=== PATIENT | female | born 1985 | race American Indian/Alaskan Native ===

== ENCOUNTER 2017-10-05 21:54 | Emergency (ER) | payer MEDICAID, OTHER ==
[2017-10-05 23:08] LABS: Basophils % (Auto) 0.4 % (0.0-1.8); Eosinophils # (Auto) 0.1 K/mm3 (0.0-0.4); Eosinophils % (Auto) 0.9 % (0.0-4.3); Hematocrit 42.7 % (30.3-42.9); Hemoglobin 14.4 gm/dl (10.1-14.3); Lymphocytes # (Auto) 1.7 K/mm3 (1.2-5.4); Lymphocytes % (Auto) 27.2 % (13.4-35.0); Mean Corpuscular HGB Conc 34 % (30-34); Mean Corpuscular Hemoglobin 28 pg (28-32); Mean Corpuscular Volume 83 fl (79-97); Monocytes # (Auto) 0.5 K/mm3 (0.0-0.8); Red Blood Count 5.14 M/mm3 (3.65-5.03)
[2017-10-05 23:28] LABS: Alanine Aminotransferase 8 units/L (7-56); Albumin 4.4 g/dL (3.9-5); BUN/Creatinine Ratio 10; Blood Urea Nitrogen 7 mg/dL (7-17); Calcium 9.4 mg/dL (8.4-10.2); Hemolysis Index 7
[2017-10-06 00:32] LABS: Platelet Count 189 K/mm3 (140-440)
[2017-10-06 01:30] LABS: Bacteria,Urine 2+ /HPF (Negative); Bilirubin,Urine SM (Negative); Blood,Urine NEG (Negative); Calcium Oxalate Crystals,Urine 1+; Color,Urine Amber (Yellow); Mucus,Urine 3+ /HPF
[2017-10-06] MEDS ORDERED: NACL 0.9% 500 ML 500 ML IV ONE (01:38)
[2017-10-06] MEDS ORDERED: TORADOL IV ONE (01:38)
[2017-10-06] MEDS ORDERED: ZOFRAN IV ONE (01:38)
[2017-10-06 01:41] LABS: Ictotest,Urine Negative (Negative)
[2017-10-06] MEDS ORDERED: BACTRIM DS PO ONE (02:41)
--- NOTE | 2017-10-06 02:46 | Emergency Department Report ---
HPI - General Chief Complaint: Abdominal Pain Time Seen by Provider: 10/06/17 00:48 - HPI HPI: The patient is 31-year-old female who presents for evaluation of abdominal pain and gastroenteritis-like symptoms. The patient reports 5 days of on and off crampy lower abdominal pain, mild to moderate in severity, exacerbated with retching. She has also experienced mild lightheadedness, nausea, and decreased appetite. The patient has a tertiary complaint of mild achy headache for the past one day. The patient denies fever, head injury, neck pain, neck stiffness, vision or hearing changes, smell or taste changes, paresthesias, facial drooping , slurred speech, seizure-like activity, urine or bowel incontinence or retention, or other focal neurological deficit. The patient also denies chest pain, dyspnea, vomiting, diarrhea, blood in the stool, dark tarry stool, hematuria, flank pain, genital discharge, inability to pass flatus. ED Past Medical Hx - Past Medical History Hx Congestive Heart Failure: No Hx Diabetes: No Hx Psychiatric Treatment: Yes (DEPRESSION / BIPOLAR) Hx Asthma: No Hx COPD: No - Surgical History Additional Surgical History: SKIN GRAFT LEFT LEG - Social History Smoking Status: Never Smoker Substance Use Type: None - Medications Home Medications: Home Medications Medication Instructions Recorded Confirmed Last Taken Type Albuterol Sulfate [Ventolin HFA] 2 puff IH Q4H PRN #1 hfa.aer.ad 11/17/1409/19/15 15:00 Rx 2 Benzonatate [Tessalon Perles] 200 mg PO Q8HR PRN #15 capsule 11/17/14 10/08/15 Unknown Rx Fluticasone [Flonase] 1 spray NS QDAY #1 bottle 11/17/14 10/08/15 Unknown Rx Ibuprofen [Motrin 800 MG tab] 800 mg PO Q8HR PRN #20 tablet 11/17/14 10/08/15 Unknown Rx traMADol [Ultram 50 MG tab] 50 mg PO Q6HR PRN #12 tablet 11/17/14 10/08/1509/05 20:00 Rx 50 Acetaminophen/Codeine [Tylenol #3] 1 tab PO Q6H PRN #5 tab 05/09/15 10/08/15 Unknown Rx Ondansetron [Zofran Odt] 4 mg PO Q8HR #15 tab.rapdis 05/09/15 10/08/15 Unknown Rx Cephalexin [Keflex] 500 mg PO Q6HR #20 capsule 10/06/17 Unknown Rx Ondansetron [Zofran TAB] 4 mg PO Q8HR PRN #20 tablet 10/06/17 Unknown Rx traMADol [Ultram 50 MG tab] 50 mg PO Q6HR PRN #15 tablet 10/06/17 Unknown Rx ED Review of Systems ROS: Stated complaint: HEADACHE/STOMACH PAIN Other details as noted in HPI Constitutional: denies: fever ENT: denies: throat or neck pain Respiratory: denies: cough, shortness of breath Cardiovascular: denies: chest pain Endocrine: denies unexplained weight loss or gain Gastrointestinal: reports: abdominal pain, nausea Genitourinary: reports dysuria Musculoskeletal: denies: leg swelling Skin: denies: rash Neurological: reports headache Hematological/Lymphatic: denies: easy bleeding or easy bruising Psych: denies sadness or hopelessness Physical Exam - Physical Exam Vital Signs: Vital Signs 10/05/17 10/06/17 10/06/17 22:17 01:27 01:30 Temperature 98.9 F 98.2 F Pulse Rate 82 Respiratory 16 16 14 Rate Blood Pressure 120/73 Blood Pressure 112/70 [Left] O2 Sat by Pulse 100 99 98 Oximetry Physical Exam: General: well-nourished, well-developed, no acute distress Head: Normocephalic, atraumatic Eyes: normal sclera ENT: Mucous membranes are pale and dry Neck: trachea midline, neck supple, No neck stiffness, no cervical adenopathy Respiratory: Breath sounds equal bilaterally, no wheezing, rales, or rhonchi Cardio: S1 and S2 present, no murmurs, rubs, gallops, capillary refill is delayed Abdomen: Normoactive bowel sounds, soft abdomen, left lower quadrant periumbilical tenderness to palpation present, no pain at McBurney's point, Salomon sign negative no rigidity, no guarding or rebound tenderness Chest WALL/Back: No tenderness to palpation of the chest wall, no CVA tenderness with percussion Musc: No pitting edema Skin: No rash Neuro: no facial drooping, normal speech Psych: Normal affect ED Course Vital Signs 10/05/17 10/06/17 10/06/17 22:17 01:27 01:30 Temperature 98.9 F 98.2 F Pulse Rate 82 Respiratory 16 16 14 Rate Blood Pressure 120/73 Blood Pressure 112/70 [Left] O2 Sat by Pulse 100 99 98 Oximetry ED Medical Decision Making - Lab Data Result diagrams: 10/05/17 22:35 10/05/17 22:35 - Medical Decision Making The patient was seen and examined by myself. The patient is placed on a bingo clerk and continuous pulse ox. On initial evaluation, the patient was found to be in no distress. Evaluation orders are placed. IV access is established and the patient is given 1 L normal saline fluid bolus for treatment of her dehydration, and Zofran for nausea, and IV analgesic for pain. Lab results revealed elevated urinalysis WBC with positive nitrites, consistent with UTI, and otherwise labs were non-concerning including serum WBC, hemoglobin , hematocrit, electrolytes, renal function. The patient is given Keflex for treatment of her UTI. The patient was reevaluated and reported that their symptoms were markedly improved. The patient is stable for discharge with outpatient follow-up. The patient is given follow-up and return instructions, including a prescription for Keflex. The patient expressed understanding and agreed with the plan. The patient is discharged in stable condition. Critical care attestation.: If time is entered above; I have spent that time in minutes in the direct care of this critically ill patient, excluding procedure time. ED Disposition Clinical Impression: Abdominal pain, acute, periumbilical, Dehydration, Acute lower UTI (urinary tract infection), Nausea and vomiting in adult Acute nonintractable headache Qualifiers: Headache type: unspecified Qualified Code(s): R51 - Headache Disposition: TO HOME OR SELFCARE Is pt being admited?: No Does the pt Need Aspirin: No Condition: Stable Instructions: Abdominal Pain (ED), Urinary Tract Infection in Women (ED), Dehydration (ED) Referrals: GAGAN QUILES CNM [Primary Care Provider] - 3-5 Days [facility] [Provider Group] - 3-5 Days Time of Disposition: 02:47
[2017-10-06 03:58] VITALS: BP 106/84
== END 2017-10-06 04:00 | disposition home or self-care (01) ==
LOC: ED 21:54
DX: N39.0 Urinary tract infection, site not specified (principal); E86.0 Dehydration
CPT/HCPCS: 36415; 80053; 81001; 83690; 84703; 85025; 96374; 96375; 99283; J1885; J2405; J7040

== ENCOUNTER 2019-09-20 08:35 | Inpatient (IN) | payer OTHER ==
[2019-09-20] MEDS ORDERED: LIDOCAINE (2%) 20 MG/1 ML VIAL 20 ML MDV INFILTRATI ONE (09:07)
[2019-09-20] MEDS ORDERED: TERBUTALINE 1 MG/1 ML INJ SUB-Q PRN (09:07)
[2019-09-20] MEDS ORDERED: ONDANSETRON 4 MG/2 ML INJ IV PRN (09:07)
[2019-09-20] MEDS ORDERED: MINERAL OIL 30 ML ORAL LIQD PO PRN (09:07)
[2019-09-20] MEDS ORDERED: BUTORPHANOL 2 MG/1 ML INJ IV PRN (09:07)
[2019-09-20] MEDS ORDERED: fentaNYL 100 MCG/2 ML INJ IV PRN (09:07)
[2019-09-20] MEDS ORDERED: TERBUTALINE 1 MG/1 ML INJ IVP PRN (09:07)
[2019-09-20] MEDS ORDERED: AMPICILLIN/NS 2 GM/100 ML 2 GM/100 ML BAG IV ONE ×2 (09:07→11:00)
[2019-09-20 09:46] LABS: Hematocrit 28.7 % (30.3-42.9); Hemoglobin 9.7 gm/dl (10.1-14.3); Mean Corpuscular HGB Conc 34 % (30-34); Mean Corpuscular Volume 80 fl (79-97); Platelet Count 153 K/mm3 (140-440); Red Cell Distribution Width 15.7 % (13.2-15.2)
[2019-09-20] MEDS ORDERED: miSOPROStol 25 MCG TAB PO SCH (10:00)
[2019-09-20] MEDS: OXYTOCIN DRIP 30 UNITS/500 ML BAG IV SCH ×2 (10:31→20:49)
[2019-09-20] MEDS: LACTATED RINGERS 1,000 ML IV SCH ×4 (10:32→21:05)
--- NOTE | 2019-09-20 12:04 | History and Physical Report ---
History of Present Illness Date of examination: 09/20/19 Date of admission: 09/20/19 08:35 Chief complaint: IOL secondary to PIH History of present illness: 33 yo, @ 37.4 wks, initiated care with [facility] at 12.5 weeks gestation. 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 She presents to [facility] for schedule IOL. Reports + FM. Denies any LOF or VB. Labs: B+, antibody negative; rubella immune; VDRL non-reactive; urine culture positive; HBsAg negative; HIV negative; platelets 219; GC/Chlamydia/Trich negative; Vit D 7.7; Varicella immune; HCV Ab negative; MSAFP Multiple Markers negative; 1 hr gtt 145; 3 hr gtt: 87, 130, 103, 98; GBS positive. Past History Past Medical History: no pertinent history Past Surgical History: no surgical history ADMISSION DISCHARGE RN History: abnormal PAP smear (2008), herpes Family/Genetic History: none Social history: single, lives with family, full code. denies: smoking, alcohol abuse, prescription drug abuse, IV drug use - Obstetrical History Expected Date of Delivery: 10/10/19 Actual Gestation: 37 Week(s) 1 Day(s) : 5 Para: 4 Hx # Term Pregnancies: 1 Number of Pregnancies: 3 Spontaneous Abortions: 0 Induced : 0 Number of Living Children: 4 #1 Infant Gender: Male year: 2,206 Method of Delivery: Vaginal Gestational age at delivery: 36 Complications: none #2 Infant Gender: Male year: 2,008 Method of Delivery: Vaginal Gestational age at delivery: 36 Complications: none #3 Infant Gender: Male year: 2,009 Method of Delivery: Vaginal Gestational age at delivery: 36 Complications: none #4 Gender: Female year: 2,016 Method of Delivery: Vaginal Gestational age at delivery: 37 Medications and Allergies Allergies Allergy/AdvReac Type Severity Reaction Status Date / Time No Known Allergies Allergy Verified 05/09/15 11:20 Home Medications Medication Instructions Recorded Confirmed Last Taken Type Albuterol Sulfate [Ventolin HFA] 2 puff IH Q4H PRN #1 hfa.aer.ad 11/17/14 10/08/15 09/19/15 15:00 Rx 2 Benzonatate [Tessalon Perles] 200 mg PO Q8HR PRN #15 capsule 11/17/14 10/08/15 Unknown Rx Fluticasone [Flonase] 1 spray NS QDAY #1 bottle 11/17/14 10/08/15 Unknown Rx Ibuprofen [Motrin 800 MG tab] 800 mg PO Q8HR PRN #20 tablet 11/17/14 10/08/15 Unknown Rx traMADoL [Ultram 50 MG tab] 50 mg PO Q6HR PRN #12 tablet 11/17/14 10/08/15 09/06/15 20:00 Rx 50 Acetaminophen/Codeine [Tylenol #3] 1 tab PO Q6H PRN #5 tab 05/09/15 10/08/15 Unknown Rx Ondansetron [Zofran Odt] 4 mg PO Q8HR #15 tab.rapdis 05/09/15 10/08/15 Unknown Rx Ondansetron [Zofran TAB] 4 mg PO Q8HR PRN #20 tablet 10/06/17 Unknown Rx cephALEXin [Keflex] 500 mg PO Q6HR #20 capsule 10/06/17 Unknown Rx traMADoL [Ultram 50 MG tab] 50 mg PO Q6HR PRN #15 tablet 10/06/17 Unknown Rx Active Meds: Active Medications Butorphanol Tartrate (Stadol) 2 mg IV Q2H PRN PRN Reason: Pain , Severe (7-10) Ephedrine Sulfate (Ephedrine Sulfate) 10 mg IV Q2M PRN PRN Reason: Hypotension Fentanyl (Sublimaze) 100 mcg IV Q2H PRN PRN Reason: Pain,Severe (7-10) LABOR PAIN Oxytocin/Sodium Chloride (Pitocin/Ns 20 Unit/1000ml Drip) 20 units in 1,000 mls @ 125 mls/hr IV DIRECT ELIEL Oxytocin/Sodium Chloride (Pitocin/Ns 30 Unit/500ml) 30 units in 500 mls @ 2 mls/hr IV TITR ELIEL; Protocol Last Titration: 09/20/19 11:22 Dose: 4 milliunits/min, 4 mls/hr Documented by: Lactated Ringer's (Lactated Ringers) 1,000 mls @ 125 mls/hr IV DIRECT ELIEL Last Admin: 09/20/19 10:32 Dose: 125 mls/hr Documented by: Ampicillin Sodium (Ampicillin/Ns 1 Gm/50 Ml) 1 gm in 50 mls @ 100 mls/hr IV Q4H ELIEL; Protocol Ampicillin Sodium (Ampicillin/Ns 2 Gm/100 Ml) 2 gm in 100 mls @ 100 mls/hr IV ONCE ONE; Protocol Stop: 09/20/19 11:59 Mineral Oil (Mineral Oil) 30 ml PO QHS PRN PRN Reason: Constipation Ondansetron HCl (Zofran) 4 mg IV Q8H PRN PRN Reason: Nausea And Vomiting Terbutaline Sulfate (Brethine) 0.25 mg SUB-Q ONCE PRN PRN Reason: Hyperstimulation/Hypertonicity Terbutaline Sulfate (Brethine) 0.25 mg IVP ONCE PRN PRN Reason: Hyperstimulation/Hypertonicity Review of Systems All systems: negative - Vital Signs Vital signs: Vital Signs Pulse Pulse Ox 85 99 09/20/19 09:17 09/20/19 09:17 Temp Pulse Resp BP Pulse Ox 98.3 F 92 H 129/74 100 09/20/19 09:20 09/20/19 11:49 09/20/19 11:30 09/20/19 11:49 - Physical Exam Breasts: Positive: normal Cardiovascular: Regular rate Lungs: Positive: Normal air movement Abdomen: Positive: other (gravid) Vagina: Positive: normal moisture Uterus: Positive: enlarged (S=D) Extremities: Positive: edema Deep Tendon Reflex Grade: Normal +2 - Obstetrical FHR: category 1 Uterine Contraction Monitor Mode: External Cervical Dilatation: 2 (Vertex) Cervical Effacement Percentage: 50 station: -3 Uterine Contraction Frequency (min): 4-5 Uterine Contraction Pattern: Irregular Uterine Tone Measurement Phase: Resting Uterine Contraction Intensity: Mild Results Result Diagrams: 09/20/19 09:25 Abnormal lab results 09/20/19 Range/Units 09:25 RBC 3.60 L (3.65-5.03) M/mm3 Hgb 9.7 L (10.1-14.3) gm/dl Hct 28.7 L (30.3-42.9) % MCH 27 L (28-32) pg RDW 15.7 H (13.2-15.2) % All other labs normal. Assessment and Plan - Patient Problems (1) Encounter for induction of labor Current Visit: Yes Status: Acute Plan to address problem: Admit to L & D Initiate Pitocin titration at 2mu/min Pain meds as desired Anticipate (2) GBS (group B Streptococcus carrier), +RV culture, currently Current Visit: Yes Status: Acute Plan to address problem: Initiate GBS prophylaxis per protocol (3) HSV-2 seropositive Current Visit: Yes Status: Acute (4) PIH ( induced hypertension), antepartum Current Visit: Yes Status: Acute Plan to address problem: Monitor B/P per protocol Notify provider for SBP>160/DBP>100
[2019-09-20 13:53] LABS: Alanine Aminotransferase 9 units/L (7-56); Albumin 3.7 g/dL (3.9-5); BUN/Creatinine Ratio 10; Blood Urea Nitrogen 6 mg/dL (7-17); Calcium 9.8 mg/dL (8.4-10.2); Hemolysis Index 10
[2019-09-20] MEDS: AMPICILLIN/NS 1 GM/50 ML 1 GM/50 ML BAG IV SCH ×2 (15:51→20:18)
[2019-09-20] MEDS ORDERED: ePHEDrine SULFATE 50 MG/1 ML INJ IV PRN (19:07)
[2019-09-20] MEDS ORDERED: NALOXONE 2 MG/2 ML INJ IV PRN (19:07)
--- NOTE | 2019-09-20 19:08 | Anesthesia Consultation ---
Anesthesia Consult and Med Hx Date of service: 09/20/19 - Airway Anesthetic Teeth Evaluation: Good ROM Head & Neck: Adequate Mental/Hyoid Distance: Adequate Mallampati Class: Class II Intubation Access Assessment: Probably Good - Pulmonary Exam CTA: Yes - Cardiac Exam Cardiac Exam: RRR - Pre-Operative Health Status ASA Pre-Surgery Classification: ASA3 Proposed Anesthetic Plan: Epidural - Pulmonary Hx Asthma: No COPD: No Hx Pneumonia: No - Cardiovascular System Hx Hypertension: Yes - Central Nervous System Hx Seizures: No Hx Psychiatric Problems: Yes - Endocrine Hx Renal Disease: No Hx End Stage Renal Disease: No Hx Hypothyroidism: No Hx Hyperthyroidism: No - Hematic Hx Anemia: Yes (with this ) Hx Sickle Cell Disease: No (trait) - Other Systems Hx Alcohol Use: No
[2019-09-20] MEDS ORDERED: DEXMEDETOMIDINE 200 MCG/2 ML VIAL IV ONE (19:11)
--- NOTE | 2019-09-20 19:29 | Progress Note ---
Labor Epidural - Labor Epidural Start Time: 19:18 Stop Time: 19:21 Performed by:: KALPESH CESPEDES Procedure: Patient is requesting epidural for labor pain. H&P, and labs reviewed. Procedure explained, questions answered, consent obtained. Patient in sitting position with blood pressure cuff and pulse ox on and working. Timeout performed immediately before start of procedure. Sterile betadine prep/drape. 3 mL 1% lidocaine skin wheal at L[3]-L[4]. 18-gauge Touhy epidural needle advanced to [id number] with saline at [7] cm. 27-gauge spinal needle advanced until clear, free-flowing CSF. Intrathecal dexmedetomidine [10] mcg administered and needle removed. Epidural catheter advanced to [12] cm, negative aspiration for blood and csf, negative test dose 3 ml 1.5% lidocaine with epinephrine. Sterile steri-strips and tegaderm applied, followed by tape reinforcement. Patient tolerated procedure well.
--- NOTE | 2019-09-20 19:48 | Event Note ---
Date: 09/20/19 Assumed care of patient at 17:30. Patient has just received epidural. SVE /- 1.
[2019-09-20] MEDS ORDERED: fentaNYL-BUPIV 2 MCG/ML-0.125% 200 MCG/100 ML BAG EPIDURAL SCH (20:00)
[2019-09-20] MEDS: ePHEDrine SULFATE 50 MG/1 ML INJ IV PRN ×2 (20:16→20:24)
[2019-09-20] MEDS: OXYTOCIN 20 UNIT/1000ML DRIP 20 UNITS/1,000 ML BAG IV SCH (23:35)
[2019-09-20] MEDS ORDERED: ACETAMINOPHEN 325 MG TAB PO PRN (23:42)
[2019-09-20] MEDS ORDERED: MAGNESIUM HYDROXIDE (MOM) ORAL LIQD UDC PO PRN (23:42)
[2019-09-20] MEDS ORDERED: HYDROcodone/ACETAMINOPHEN 5-325 MG TAB PO PRN (23:42)
[2019-09-20] MEDS ORDERED: LANOLIN/ZINC/DIMETHICONE (LANSINOH) 7 GM TP PRN (23:42)
[2019-09-20] MEDS ORDERED: WITCH HAZEL/ GLYCERIN PAD TP PRN (23:42)
--- NOTE | 2019-09-20 23:51 | Procedure Note ---
OB Delivery Note - Delivery Date of Delivery: 09/20/19 Surgeon: BERE CABRAL Estimated blood loss: 200cc - Vaginal Delivery presentation: vertex Delivery position: OA Delivery induction: oxytocin Delivery augmentation: rupture of membranes Delivery monitor: external FHT, external uterine Route of delivery: Delivery placenta: spontaneous Delivery cord: 3 umbilical vessels Episiotomy: none Delivery laceration: none Anesthesia: epidural Delivery comments: Spontaneous vaginal delivery at 23:21 of liveborn male infant weighing 6 lb. 0.6 oz over intact perineum with apgars of 8/9. Epidural anesthesia. Baby delivered gently and easily and placed skin to skin with mom immediately after . Spontaneous cry and respirations. Baby dried and bulb suctioned. 3 vessel cord double clamped and cut. Spontaneous delivery of intact placenta and membranes by mixon mechanism. EBL 200 cc. Pitocin to IV fluids after delivery of placenta. Fundus firm and midline. No lacerations noted. Vaginal sweep negative. Sponge count correct. Mother and baby stable.
[2019-09-21] MEDS: OXYTOCIN 20 UNIT/1000ML DRIP 20 UNITS/1,000 ML BAG IV SCH (01:56)
[2019-09-21] MEDS: IBUPROFEN 600 MG TAB PO SCH ×2 (05:58→13:36)
--- NOTE | 2019-09-21 11:09 | Progress Note ---
Assessment and Plan A: day 1 S/P . P: Anticipate discharge tomorrow if patient continues to do well. Subjective - Subjective Date of service: 09/21/19 Principal diagnosis: day 1 S/P Interval history: No complaints. Doing well. Patient reports: appetite normal, voiding normally, pain well controlled, flatus, ambulating normally, no dizzy ambulation, no nauseated [place]: doing well Objective - Vital Signs Latest vital signs: Vital Signs Temp Pulse Resp BP BP Pulse Ox 09/21/19 07:36 97.8 F 70 20 128/59 98 09/21/19 04:56 98.7 F 80 20 116/59 95 09/21/19 02:07 97.9 F 90 18 127/49 97 09/21/19 01:31 80 118/62 09/21/19 01:30 16 09/21/19 01:16 95 H 118/58 09/21/19 01:01 87 131/60 09/21/19 01:00 98.1 F 16 09/21/19 00:46 89 132/66 09/21/19 00:31 90 132/62 09/21/19 00:30 18 09/21/19 00:16 89 120/59 09/21/19 00:15 18 09/21/19 00:01 101 H 140/63 09/21/19 00:00 18 09/20/19 23:46 101 H 94/53 09/20/19 23:40 105 H 99 09/20/19 23:35 96 H 99 09/20/19 23:31 98.1 F 99 H 18 102/59 09/20/19 23:30 98 H 98 09/20/19 23:25 103 H 99 09/20/19 23:20 110 H 98 09/20/19 23:19 116 H 115/69 09/20/19 23:15 90 100 09/20/19 23:10 92 H 99 09/20/19 23:05 88 97 09/20/19 23:04 85 110/55 09/20/19 23:00 102 H 97 09/20/19 22:55 85 98 09/20/19 22:50 89 98 09/20/19 22:49 91 H 114/56 09/20/19 22:45 86 100 05/29/20 22:40 83 98 05/29/20 22:35 86 99 05/29/20 22:33 77 121/57 05/29/20 22:30 88 100 05/2920 22:25 90 100 05/29/20 22:20 95 H 100 0520 22:19 104 H 121/54 05/29/20 22:15 86 98 05/29/20 22:10 87 98 0520 22:05 86 99 0520 22:03 81 100/55 052920 22:00 92 H 100 052920 21:55 87 98 05/2920 21:51 82 109/56 05/29/20 21:50 90 99 05/29/20 21:45 89 99 05/29/20 21:40 89 98 052920 21:35 93 H 100 0520 21:30 88 98 05/2920 21:25 86 98 05/29/20 21:20 91 H 100 0520 21:19 95 H 120/52 052920 21:15 97 H 98 0520 21:10 100 H 99 0520 21:05 92 H 98 0520 21:04 93 H 108/52 0520 21:00 91 H 99 0529/20 20:55 100 H 99 05//20 20:50 100 H 97 0529/20 20:45 99 H 98 05/29/20 20:43 98 H 97/48 05/29/20 20:40 93 H 98 05/29/20 20:38 93 H 101/51 05/29/20 20:35 97 H 97 05/29/20 20:34 102 H 106/53 05/29/20 20:30 106 H 88/46 100 05/29/20 20:28 100 H 86/49 05/29/20 20:25 82 98 05/29/20 20:23 100 H 83/46 05/29/20 20:20 85 99 05/29/20 20:18 95 H 86/47 05/29/20 20:15 93 H 98 05/29/20 20:13 108 H 80/44 05/29/20 20:10 122 H 99 05/29/20 20:08 157 H 94/51 05/29/20 20:05 83 99 09/20/19 20:03 103 H 99/53 09/20/19 20:00 116 H 99 09/20/19 19:55 135 H 99 09/20/19 19:54 123 H 109/74 09/20/19 19:50 85 99 09/20/19 19:48 76 105/58 09/20/19 19:45 80 100 09/20/19 19:40 90 99 09/20/19 19:38 92 H 125/59 09/20/19 19:35 86 99 09/20/19 19:32 79 108/57 09/20/19 19:30 73 123/57 100 09/20/19 19:28 88 124/66 09/20/19 19:26 95 H 124/67 09/20/19 19:25 73 99 09/20/19 19:24 94 H 140/63 09/20/19 19:22 128/74 09/20/19 19:20 97 H 124/69 100 09/20/19 19:15 89 100 09/20/19 19:10 84 98 09/20/19 19:05 90 99 09/20/19 19:01 88 131/89 09/20/19 19:00 98.0 F 105 H 100 09/20/19 18:56 103 H 83 L 09/20/19 18:54 82 97 09/20/19 18:49 80 98 09/20/19 18:44 79 98 09/20/19 18:39 78 98 09/20/19 18:34 85 98 09/20/19 18:31 77 139/72 09/20/19 18:29 80 98 09/20/19 18:24 91 H 98 09/20/19 18:19 97 H 98 09/20/19 18:14 80 100 09/20/19 18:09 86 100 09/20/19 18:04 97 H 99 09/20/19 18:01 83 143/74 09/20/19 17:59 83 99 09/20/19 17:54 88 99 09/20/19 17:49 80 99 09/20/19 17:44 91 H 97 09/20/19 17:39 96 H 99 09/20/19 17:34 82 100 05 17:31 85 132/64 05 17:29 94 H 99 09/20/19 17:24 81 99 09/20/19 17:19 75 99 09/20/19 17:14 87 99 09/20/19 17:09 89 98 09/20/19 17:04 79 97 09/20/19 17:00 86 153/70 09/20/19 16:59 87 99 09/20/19 16:31 75 124/73 09/20/19 16:01 84 138/86 09/20/19 15:49 88 99 09/20/19 15:44 75 99 09/20/19 15:39 74 99 09/20/19 15:34 89 99 09/20/19 15:30 70 135/74 09/20/19 15:29 83 99 09/20/19 15:24 83 99 09/20/19 15:22 70 87 09/20/19 15:19 77 99 09/20/19 15:14 76 98 09/20/19 15:09 76 98 09/20/19 15:04 72 98 09/20/19 15:00 97 H 129/75 09/20/19 14:59 81 99 09/20/19 14:54 78 98 09/20/19 14:49 76 98 09/20/19 14:44 77 99 09/20/19 14:39 82 98 09/20/19 14:34 100 H 99 09/20/19 14:31 71 122/62 09/20/19 14:29 78 98 09/20/19 14:24 68 99 09/20/19 14:19 81 98 09/20/19 14:14 76 98 09/20/19 14:09 76 98 09/20/19 14:04 80 98 09/20/19 14:02 97 H 141/63 09/20/19 13:59 82 100 09/20/19 13:54 87 98 09/20/19 13:49 85 99 09/20/19 13:44 87 99 09/20/19 13:39 82 99 09/20/19 13:34 81 100 09/20/19 13:31 95 H 120/84 09/20/19 13:29 84 99 09/20/19 13:24 85 99 09/20/19 13:19 77 99 09/20/19 13:14 85 99 0520 13:09 92 H 99 09/20/19 13:04 106 H 98 09/20/19 13:00 74 142/67 09/20/19 12:59 81 97 09/20/19 12:54 73 98 09/20/19 12:49 84 98 09/20/19 12:44 69 99 09/20/19 12:34 83 98 09/20/19 12:30 80 142/83 09/20/19 12:29 80 99 09/20/19 12:24 83 98 09/20/19 12:19 82 99 09/20/19 12:14 92 H 99 09/20/19 12:09 97 H 98 09/20/19 12:04 86 99 09/20/19 12:00 93 H 140/86 09/20/19 11:59 84 99 09/20/19 11:54 90 99 09/20/19 11:49 92 H 100 09/20/19 11:44 89 94 09/20/19 11:39 92 H 100 09/20/19 11:34 92 H 100 09/20/19 11:30 89 129/74 09/20/19 11:29 78 99 09/20/19 11:24 93 H 99 09/20/19 11:19 89 99 09/20/19 11:14 95 H 100 09/20/19 11:09 85 99 Intake and Output 09/20/19 09/21/19 09/21/19 23:59 07:59 15:59 Intake Total 2130.850 413.75 200 Output Total 300 1900 500 Balance 1830.850 -1486.25 -300 Intake: IV 2130.850 293.75 AMPICILLIN/NS 1 GM/50 ML 50 1 gm In 50 ml @ 100 mls/ hr IV Q4H ELIEL Rx#: [id number] Lactated Ringers 1,000 ml 2014.584 @ 125 mls/hr IV DIRECT ELIEL Rx#:[id number] PITOCin/NS 20 UNIT/1000ML 293.75 DRIP 20 units In 1,000 ml @ 125 mls/hr IV DIRECT ELIEL Rx#:[id number] PITOCin/NS 30 UNIT/500ML 66.266 30 units In 500 ml @ 2 MILLIUNITS/MIN 2 mls/hr IV TITR ELIEL Rx#:[id number] Oral 120 200 Output: Urine 300 1900 500 Indwelling Catheter 300 900 Void 1000 500 Other: Total, Intake Amount 120 200 Total, Output Amount 300 1000 500 # Voids Void 1 - Exam Abdomen: Present: normal appearance, soft. Absent: distention, tenderness, guarding, rigidity Uterus: Present: normal, firm, fundal height below umbilicus. Absent: bogginess, tenderness Extremities: Present: normal. Absent: tenderness, edema - Labs Labs: Abnormal lab results 09/20/19 Range/Units 12:46 Carbon Dioxide 19 L (22-30) mmol/L BUN 6 L (7-17) mg/dL Creatinine 0.6 L (0.7-1.2) mg/dL Alkaline Phosphatase 203 H (35-129) units/L Albumin 3.7 L (3.9-5) g/dL
[2019-09-21 11:32] LABS: Hematocrit 29.2 % (30.3-42.9)
[2019-09-21] MEDS: DOCUSATE SODIUM 100 MG CAP PO SCH ×2 (13:36→22:06)
[2019-09-21] MEDS: FERROUS SULFATE 325 MG TAB PO SCH ×2 (13:37→22:06)
[2019-09-22] MEDS: FERROUS SULFATE 325 MG TAB PO SCH (09:45)
[2019-09-22] MEDS: DOCUSATE SODIUM 100 MG CAP PO SCH (09:45)
--- NOTE | 2019-09-22 09:50 | Progress Note ---
Assessment and Plan A: day 2 S/P . Anemia. Mild BP elevation. P: Recheck BPs. Continue current management. Anticipate discharge home later today or tomorrow. Subjective - Subjective Date of service: 09/22/19 Principal diagnosis: day 2 S/P Interval history: No complaints. Doing well. Patient reports: appetite normal, voiding normally, pain well controlled, flatus, ambulating normally, no dizzy ambulation, no nauseated : doing well Objective - Vital Signs Latest vital signs: Vital Signs Temp Pulse Resp BP Pulse Ox 09/22/19 08:25 97.9 F 81 18 137/91 98 09/21/19 23:32 98.5 F 77 20 140/79 100 09/21/19 15:49 98.6 F 86 20 126/81 98 09/21/19 12:04 98.4 F 82 20 122/70 99 Intake and Output 09/21/19 09/22/19 09/22/19 23:59 07:59 15:59 Intake Total 480 240 Balance 480 240 Intake: Oral 480 240 Other: Total, Intake Amount 240 240 # Voids Void 1 1 - Exam Cardiovascular: Present: Regular rate, Normal S1, Normal S2, No murmurs Lungs: Present: Clear to auscultation Abdomen: Present: normal appearance, soft, normal bowel sounds. Absent: distention, tenderness, guarding, rigidity Uterus: Present: normal, firm, fundal height below umbilicus. Absent: bogginess, tenderness Extremities: Present: normal. Absent: tenderness, edema - Labs Labs: Abnormal lab results 09/21/19 Range/Units 11:02 Hgb 10.0 L (10.1-14.3) gm/dl Hct 29.2 L (30.3-42.9) %
[2019-09-22] MEDS: IBUPROFEN 600 MG TAB PO SCH (11:19)
[2019-09-22 16:19] VITALS: BP 131/72
--- NOTE | 2019-09-22 16:40 | Discharge Summary ---
Providers - Providers Date of Admission: 09/20/19 08:35 Date of discharge: 09/22/19 Attending physician: ELHAM NATION MD Primary care physician: [facility] Hospitalization Reason for admission: induction of labor Delivery: Episiotomy: none Laceration: none Other procedures: none complications: none Discharge diagnosis: IUP at term delivered [place] baby: male Pertinent studies: Labs Hospital course: Normal hospital course Condition at discharge: Good Disposition: DC-01 TO HOME OR SELFCARE - Discharge Diagnoses (1) Term delivered Status: Acute (2) Anemia Status: Acute Plan - Provider Discharge Summary Activity: routine, no sex for 6 weeks, no heavy lifting 4 weeks, no strenuous exercise Diet: routine Instructions: routine Additional instructions: Please continue to take your vitamins and iron supplements at home. Call your doctor immediately for: * Fever > 100.5 * Heavy vaginal bleeding ( >1 pad per hour) * Severe persistent headache * Shortness of breath * Reddened, hot, painful area to leg or breast * Drainage or odor from incision. * Keep incision clean and dry at all times and follow doctor's instructions regarding bathing/showering - Follow up plan Follow up: ELHAM NATION MD [Staff Physician] - 09/24/19
== END 2019-09-22 17:41 | disposition home or self-care (01) | DRG 774 ==
LOC: LD 08:35 → OB 09-21 02:29
PROVIDERS: ADMIT Obstetrics & Gynecology; ATTEND Obstetrics & Gynecology
PROC: 10E0XZZ Delivery of Products of Conception, External Approach (ICD-10-PCS; principal; 2019-09-20)
PROC: 3E033VJ Introduction of Other Hormone into Peripheral Vein, Percutaneous Approach (ICD-10-PCS; 2019-09-20)
PROC: 3E0R3BZ Introduction of Anesthetic Agent into Spinal Canal, Percutaneous Approach (ICD-10-PCS; 2019-09-20)
PROC: 00HU33Z Insertion of Infusion Device into Spinal Canal, Percutaneous Approach (ICD-10-PCS; 2019-09-20)
DX: O99.824 Streptococcus B carrier state complicating childbirth (principal); O98.52 Other viral diseases complicating childbirth; O99.344 Other mental disorders complicating childbirth; F32.9 Major depressive disorder, single episode, unspecified; B00.9 Herpesviral infection, unspecified; O99.02 Anemia complicating childbirth; Z3A.37 37 weeks gestation of pregnancy; Z37.0 Single live birth; Z87.440 Personal history of urinary (tract) infections; Z79.899 Other long term (current) drug therapy
CPT/HCPCS: 36415; 59025; 80053; 85014; 85018; 85027; 86850; 86900; 86901; G0378; J0290; J2405; J2590; J3010; J3490; J7120

== ENCOUNTER 2022-01-13 11:52 | Emergency (ER) | payer OTHER ==
[2022-01-13] MEDS ORDERED: HYDROcodone/ACETAMINOPHEN 5-325 MG TAB PO ONE (15:50)
[2022-01-13] MEDS ORDERED: ONDANSETRON 4 MG ODT TAB PO ONE (15:50)
[2022-01-13] MEDS ORDERED: CYCLOBENZAPRINE 10 MG TAB PO ONE (15:50)
--- NOTE | 2022-01-13 15:50 | Emergency Department Report ---
ED General Adult HPI - General Chief complaint: Abdominal Pain Stated complaint: PAIN UNDER LFT BREAST SOB Time Seen by Provider: 01/13/22 15:06 Source: patient Mode of arrival: Ambulatory Limitations: No Limitations - History of Present Illness Initial comments: 36-year-old female with history of hypertension presenting with left breast pain x2 weeks. Patient describes the pain as sharp worsening with inspiration, and movement. States she did see her PCP yesterday , testings are pending. Pain is sharp, worse with inspiration, radiates towards her left armpit, with associating nausea, fatigue. She denies injury, she denies abdominal pain, she denies fever, no coughing cold congestion, pain does not radiate to the flank area,, no abdominal t pain, no vomiting, no headache dizziness or vision changes She denies being , last menstrual period was-irregular patient is on the Mirena. -: Gradual, week(s) Location: chest Severity scale (0 -10): 0 Quality: sharp, dull - Related Data Previous Rx's Medication Instructions Recorded Last Taken Type Albuterol Sulfate [Ventolin HFA] 2 puff IH Q4H PRN #1 hfa.aer.ad 11/17/14 09/19/15 15:00 Rx 2 Benzonatate [Tessalon Perles] 200 mg PO Q8HR PRN #15 capsule 11/17/14 Unknown Rx Fluticasone [Flonase] 1 spray NS QDAY #1 bottle 11/17/14 Unknown Rx Ibuprofen [Motrin 800 MG tab] 800 mg PO Q8HR PRN #20 tablet 11/17/14 Unknown Rx traMADoL [Ultram 50 MG tab] 50 mg PO Q6HR PRN #12 tablet 11/17/14 09/06/15 20:00 Rx 50 Acetaminophen/Codeine [Tylenol #3] 1 tab PO Q6H PRN #5 tab 05/09/15 Unknown Rx Ondansetron [Zofran Odt] 4 mg PO Q8HR #15 tab.rapdis 05/09/15 Unknown Rx Ondansetron [Zofran TAB] 4 mg PO Q8HR PRN #20 tablet 10/06/17 Unknown Rx cephALEXin [Keflex] 500 mg PO Q6HR #20 capsule 10/06/17 Unknown Rx traMADoL [Ultram 50 MG tab] 50 mg PO Q6HR PRN #15 tablet 10/06/17 Unknown Rx Naproxen [Naprosyn] 375 mg PO BID PRN #20 tablet 01/13/22 Unknown Rx methOCARBAMOL [Robaxin TAB] 500 mg PO Q8H PRN #20 01/13/22 Unknown Rx Allergies Allergy/AdvReac Type Severity Reaction Status Date / Time No Known Allergies Allergy Verified 01/13/22 12:23 ED Review of Systems ROS: Stated complaint: PAIN UNDER LFT BREAST SOB Other details as noted in HPI Constitutional: see HPI ENT: denies: throat pain, congestion Respiratory: denies: cough Cardiovascular: as per HPI, chest pain. denies: palpitations Endocrine: denies: intolerance to cold, intolerance to heat Gastrointestinal: nausea. denies: abdominal pain, vomiting Genitourinary: denies: frequency Musculoskeletal: as per HPI. denies: joint swelling, arthralgia Skin: denies: rash Neurological: weakness (Fatigue). denies: headache Psychiatric: denies: anxiety, depression Hematological/Lymphatic: denies: easy bleeding ED Past Medical Hx - Past Medical History Hx Hypertension: Yes Hx Congestive Heart Failure: No Hx Diabetes: No Hx Deep Vein Thrombosis: No Hx Renal Disease: No Hx Sickle Cell Disease: No (trait) Hx Seizures: No Hx Psychiatric Treatment: Yes (DEPRESSION / BIPOLAR) Hx Asthma: No Hx COPD: No Hx HIV: No - Surgical History Additional Surgical History: SKIN GRAFT LEFT LEG - Social History Smoking Status: Never Smoker Substance Use Type: None - Medications Home Medications: Home Medications Medication Instructions Recorded Confirmed Last Taken Type Albuterol Sulfate [Ventolin HFA] 2 puff IH Q4H PRN #1 hfa.aer.ad 11/17/14 09/22/19 09/19/15 15:00 Rx 2 Benzonatate [Tessalon Perles] 200 mg PO Q8HR PRN #15 capsule 11/17/14 09/22/19 Unknown Rx Fluticasone [Flonase] 1 spray NS QDAY #1 bottle 11/17/14 09/22/19 Unknown Rx Ibuprofen [Motrin 800 MG tab] 800 mg PO Q8HR PRN #20 tablet 11/17/14 09/22/19 Unknown Rx traMADoL [Ultram 50 MG tab] 50 mg PO Q6HR PRN #12 tablet 11/17/14 09/22/19 09/06/15 20:00 Rx 50 Acetaminophen/Codeine [Tylenol #3] 1 tab PO Q6H PRN #5 tab 05/09/15 09/22/19 Unknown Rx Ondansetron [Zofran Odt] 4 mg PO Q8HR #15 tab.rapdis 05/09/15 09/22/19 Unknown R x Ondansetron [Zofran TAB] 4 mg PO Q8HR PRN #20 tablet 10/06/17 09/22/19 Unknown Rx cephALEXin [Keflex] 500 mg PO Q6HR #20 capsule 10/06/17 09/22/19 Unknown Rx traMADoL [Ultram 50 MG tab] 50 mg PO Q6HR PRN #15 tablet 10/06/17 09/22/19 Unknown Rx Naproxen [Naprosyn] 375 mg PO BID PRN #20 tablet 01/13/22 Unknown Rx methOCARBAMOL [Robaxin TAB] 500 mg PO Q8H PRN #20 01/13/22 Unknown Rx ED Physical Exam - General Limitations: No Limitations General appearance: alert - Head Head exam: Present: atraumatic - Eye Eye exam: Present: normal appearance, PERRL Pupils: Present: normal accommodation - ENT ENT exam: Present: normal exam, normal orophraynx - Neck Neck exam: Present: normal inspection, tenderness - Respiratory Respiratory exam: Present: normal lung sounds bilaterally, chest wall tenderness (Tender under the left breast, axillary area). Absent: respiratory distress, wheezes, accessory muscle use, decreased breath sounds - Cardiovascular Cardiovascular Exam: Present: regular rate, normal rhythm, normal heart sounds - GI/Abdominal GI/Abdominal exam: Present: soft, tenderness (Left lower quadrant tender), normal bowel sounds. Absent: distended, guarding - Extremities Exam Extremities exam: Present: normal inspection, full ROM, normal capillary refill. Absent: tenderness, pedal edema - Back Exam Back exam: Present: normal inspection, full ROM. Absent: tenderness, CVA tenderness (R), CVA tenderness (L), muscle spasm - Neurological Exam Neurological exam: Present: alert, oriented X3, CN II-XII intact, normal gait - Psychiatric Psychiatric exam: Present: normal affect, normal mood, anxious - Skin Skin exam: Present: warm, dry, intact, normal color ED Course Vital Signs 01/13/22 01/13/22 12:27 15:20 Temperature 99.3 F 98.3 F Pulse Rate 74 68 Respiratory 18 18 Rate Blood Pressure 122/67 139/78 Blood Pressure 139/78 [Left] O2 Sat by Pulse 97 98 Oximetry ED Medical Decision Making - Lab Data Result diagrams: 01/13/22 16:44 01/13/22 16:44 - Medical Decision Making 36-year-old female presenting with left breast pain x2 weeks. Patient describes the pain as sharp worsening with inspiration, and movement. States she did see her PCP yesterday , testings are pending. Pain is sharp, worse with inspiration, radiates towards her left armpit, with associating nausea, fatigue. She denies injury, she denies abdominal pain, she denies fever, no coughing cold congestion, pain does not radiate to the flank area,, no abdominal t pain, no vomiting, no headache dizziness or vision changes She denies being , last menstrual period was-irregular patient is on the Mirena. Chest x-ray is negative for any acute findings, patient is afebrile, her labs are reassuring, negative test, pain is reproducible. Wells PE score low. Discharged home with NSAIDs, muscle relaxant as well as instruction for costochondritis. I have encouraged patient to follow-up with her doctor for follow-up work-up, and evaluation. Tolerated oral intake throughout ED, no vomiting, Patient remained stable nontoxic-appearing, afebrile, ambulating steadily without assistance. Gone over ED findings with patient as well as plan for follow-up. Also discussed return precautions with patient, all questions and concerns addressed. Patient is stable to be discharged follow-up outpatient. Audio voice dictation device used, hence the chart might contain some dictation errors, mispronunciations, wrong spelling and wrong verbiage. Critical care attestation.: If time is entered above; I have spent that time in minutes in the direct care of this critically ill patient, excluding procedure time. ED Disposition Clinical Impression: Left-sided chest wall pain Disposition: 01 HOME / SELF CARE / HOMELESS Is pt being admited?: No Does the pt Need Aspirin: No Condition: Stable Instructions: Abdominal Pain (ED), Nonspecific Chest Pain, Adult Prescriptions: Naproxen [Naprosyn] 375 mg PO BID PRN #20 tablet PRN Reason: Pain , Severe (7-10) methOCARBAMOL [Robaxin TAB] 500 mg PO Q8H PRN #20 PRN Reason: chest wall Referrals: PRIMARY CAREMD [Primary Care Provider] - 3-5 Days BRAYAN POLO MD [Staff Physician] - 3-5 Days Forms: Work/School Release Form(ED)
[2022-01-13 17:13] LABS: Color,Urine Yellow (Yellow)
[2022-01-13 17:17] LABS: Hematocrit 40.7 % (30.3-42.9); Mean Corpuscular HGB Conc 35 % (30-34); Mean Corpuscular Volume 82 fl (79-97); Platelet Count 227 K/mm3 (140-440); Red Blood Count 4.96 M/mm3 (3.65-5.03)
[2022-01-13 17:19] LABS: Bacteria,Urine 1+ /HPF (Negative); Mucus,Urine FEW /HPF
[2022-01-13 17:24] LABS: HCG Qualitative,Urine Negative (Negative)
--- NOTE | 2022-01-13 17:50 | XRay Report ---
CHEST 1 VIEW 01/13/2022 5:33 PM INDICATION / CLINICAL INFORMATION: chest pain, sob. COMPARISON: None available. FINDINGS: SUPPORT DEVICES: None. HEART / MEDIASTINUM: No significant abnormality. LUNGS / PLEURA: No significant pulmonary or pleural abnormality. No pneumothorax. ADDITIONAL FINDINGS: No significant additional findings. IMPRESSION: 1. No acute findings. Signer Name: Elier Moreno MD Signed: 01/13/2022 5:46 PM Workstation Name: [id number]
[2022-01-13 17:51] LABS: Blood Urea Nitrogen 7 mg/dL (7-17); Hemolysis Index 9
[2022-01-13 18:09] LABS: BUN/Creatinine Ratio 12
[2022-01-13 21:11] VITALS: BP 134/78
== END 2022-01-13 21:11 | disposition home or self-care (01) ==
LOC: ED 11:52
DX: R07.89 Other chest pain (principal); I10 Essential (primary) hypertension
CPT/HCPCS: 36415; 71045; 80048; 81001; 81025; 85027; 99284; J3490; Q0162